=== PATIENT | male | born 1985 | race Caucasian/White ===

== ENCOUNTER 2023-09-15 20:54 | Emergency (ER) | payer SELFPAY ==
[~2023-09-15] VITALS: Ht 172.7 cm; Wt 89.0 kg
[2023-09-15 20:56] VITALS: BP 113/77; PULSE 90; O2SAT 97
[2023-09-15 21:04] VITALS: RESP 22
[2023-09-15 22:28] LABS: D-DIMER 0.37 MG/L FEU (0-0.50)
== END 2023-09-16 00:08 | disposition home or self-care (01) ==
LOC: ER 20:55
DX: G40.909 Epilepsy, unspecified, not intractable, without status epilepticus (principal)
CPT/HCPCS: 36415; 80164; 85379; 99283

== ENCOUNTER 2023-12-11 10:04 | Emergency (ER) | payer MEDICAID ==
[~2023-12-11] VITALS: Ht 177.8 cm; Wt 108.0 kg
[2023-12-11] MEDS: normal saline 1000ML IV soln IV ONE (10:24)
[2023-12-11] MEDS: LORazepam 2 mg/ml vial IV ONE (10:24)
[2023-12-11] MEDS: levetiracetam inj 1,500 MG in normal saline 100ml IV soln 100 ML IV STA (10:42)
[2023-12-11 10:46] LABS: BASOPHILS # (AUTO) 0.2 X10'3 (0-0.2); MEAN CORPUSCULAR HEMOGLOBIN 27.9 PG (27.0-31.0); NEUTROPHILS % (AUTO) 41.8 % (42-75); RED BLOOD COUNT 5.74 X10'6 (4.70-6.10)
[2023-12-11 10:48] LABS: BASOPHILS % (AUTO) 1.3 % (0-1); EOSINOPHILS # (AUTO) 0.3 X10'3 (0-0.9); EOSINOPHILS % (AUTO) 2.4 % (0-6); HEMATOCRIT 49.5 % (42.0-52.0); LYMPHOCYTES # (AUTO) 6.9 X10'3 (1.1-4.8); LYMPHOCYTES % (AUTO) 48.1 % (21-51); MEAN CORPUSCULAR HGB CONC 32.4 g/dL (33.0-36.5); MEAN CORPUSCULAR VOLUME 86.2 FL (78-98); MEAN PLATELET VOLUME 7.5 FL (7.4-10.4); MONOCYTES # (AUTO) 0.9 X10'3 (0-0.9); MONOCYTES % (AUTO) 6.4 % (2-12); PLATELET COUNT 299 X10'3 (140-440); RED CELL DISTRIBUTION WIDTH 13.8 % (11.5-14.5); WHITE BLOOD COUNT 14.3 X10'3 (4.5-11.0)
[2023-12-11 10:55] LABS: ALBUMIN 4.1 G/DL (3.4-5.0); ANION GAP 25 (8-16); BLOOD UREA NITROGEN 14 MG/DL (7-18); BUN/CREATININE RATIO 12.1 (10.0-20.0); CALCIUM 9.4 MG/DL (8.5-10.1); CHLORIDE 102 MMOL/L (99-107); CREATININE 1.16 MG/DL (0.60-1.10); GLUCOSE 146 MG/DL (70-104); MAGNESIUM 2.2 MG/DL (1.5-2.4); SODIUM 139 MMOL/L (135-145); eCRCL 91 ML/MIN; eGFR 71 ML/MIN
[2023-12-11 11:05] LABS: TOTAL CARBON DIOXIDE 11.9 MMOL/L (24-32)
[2023-12-11 11:12] LABS: TOTAL CELLS COUNTED 100
[2023-12-11 11:13] LABS: PLATELET ESTIMATE NORMAL
[2023-12-11] MEDS: normal saline 1000ML IV soln IVB ONE (12:37)
[2023-12-11 12:38] VITALS: BP 117/77; PULSE 83; RESP 20; TEMP 98.6; O2SAT 95
[2023-12-11] MEDS ORDERED: DIVA-76 PO (13:41)
[2023-12-11] MEDS ORDERED: LEVE10002 PO (13:41)
== END 2023-12-11 14:17 | disposition home or self-care (01) ==
LOC: ER 10:05
DX: G40.802 Other epilepsy, not intractable, without status epilepticus (principal); Z79.899 Other long term (current) drug therapy
CPT/HCPCS: 36415; 71045; 80048; 82948; 83735; 84145; 85007; 85025; 93005; 96365; 96366; 96375; 99285; J1953; J2060; J7030; A4615